=== PATIENT | female | born 1995 | race Caucasian/White ===

== ENCOUNTER 2019-06-27 22:45 | Emergency (ER) | payer MEDICARE, MEDICAID, SELFPAY ==
[2019-06-27 23:25] VITALS: PULSE 67; RESP 18; TEMP 36.5; O2SAT 100; BMI 22.6
--- NOTE | 2019-06-28 06:20 | ED.PREGNANCY ---
HPI - General Chief complaint: OB/Uterine Contractions Stated complaint: THINKS Time Seen by Provider: 06/27/19 22:51 Source: patient Mode of arrival: ambulatory Limitations: no limitations History of Present Illness HPI Narrative: 23-year-old female smoker presents for with a concern that she may be as evidenced by and inability to remember her last period, some nausea and 4 positive tests at home. She states that she had to confirm her in the emergency department because she needs to improve her to a local government office in order to access the benefits as well as get a private room at her apartment complex. She denies any fever chills. She denies any pain. She denies bleeding, discharge or leakage of fluid MD Complaint: other Associated symptoms: denies other symptoms Vaginal discharge: none Vaginal bleeding: none Patient : Yes OB History - Current : no complications care: none Related Data Home Medications Medication Instructions Recorded Confirmed docusate sodium 100 mg PO BID #0 05/25/12 trazodone 50 mg PO HS #0 05/25/12 methylphenidate HCl [Ritalin LA] #0 06/06/12 Allergies Allergy/AdvReac Type Severity Reaction Status Date / Time No Known Drug Allergies Allergy Verified 06/27/19 23:25 Review of Systems Constitutional Denies chills, Denies fever(s), Denies lethargy and Denies weakness Eyes Denies change in vision, Denies eye discharge, Denies irritation and Denies loss of vision ENT Ears, Nose, Mouth, and Throat: Denies change in voice, Denies neck pain and Denies sore throat Cardiovascular Denies chest pain, Denies irregular heart rhythm, Denies lightheadedness, Denies palpitations, Denies dyspnea, Denies dyspnea on exertion and Denies orthopnea Respiratory Denies cough, Denies dyspnea, Denies dyspnea on exertion and Denies wheezing Gastrointestinal Gastrointestinal: Denies abdominal pain, Denies change in bowel habits, Denies diarrhea, Denies nausea and Denies vomiting Genitourinary Denies hematuria, Denies flank pain, Denies urinary incontinence and Denies urinary urgency Musculoskeletal Denies neck pain Integumentary/Breasts Denies pruritus, Denies erythema, Denies rash and Denies wounds Neurologic Denies confusion, Denies loss of vision and Denies weakness Psychiatric Denies anxiety, Denies confusion, Denies depression, Denies homicidal ideation and Denies suicidal ideation Endocrine Denies palpitations Hematologic/Lymphatic Denies easy bruising Allergic/Immunologic Denies wheezing PMFSH - Past Medical History Patient : Yes Exam Narrative Exam Narrative: GEN: AOx3 and in mild distress EYES: Pupils are equal, round, and reactive to light and accommodation. Extraoccular muscles are intact bilaterally. There is no subconjunctival hemorrhage or exudate. CHEST: Lungs are clear to auscultation bilaterally and free of wheezes, rales, or rhonchi. Heart rate is regular rhythm, there are no murmurs, clicks, rubs, or gallops. There is no chest wall tenderness. ABD: Abdomen is soft and nontender. There is no guarding or rebound. Bowel sounds are normal in all 4 quadrants. There is no mass or organomegaly. EXT: Full painless ROM of all extremities with no loss of sensation or strength. SKIN: Warm, pink, and dry. No erythema or rash Initial Vital Signs Initial Vital Signs: Vital Signs Temperature 97.7 F 06/27/19 23:25 Pulse Rate 67 06/27/19 23:25 Respiratory Rate 18 06/27/19 23:25 Pulse Oximetry 100 06/27/19 23:25 Course Vital Signs - 8 hr 06/27/19 23:25 Temperature 97.7 F Pulse Rate 67 Respiratory Rate 18 Pulse Oximetry 100 MDM - OB/Uterine Contractions Lab Data Point of Care Testing Test Results Positive Discharge Plan Departure Patient Disposition: Home Clinical Impression: Qualifiers: Weeks of gestation: unspecified Qualified Code(s): Z34.90 - Encounter for supervision of normal , unspecified, unspecified trimester Discharge Date/Time: 06/28/19 01:25 Interventions: ED Discharge Assessment Last Done: 06/28/19 01:25 Instructions: DI for -- Discomforts and Remedies Activity Restrictions/Additional Instructions: *You have been diagnosed with [newly discovered ] *What to do: *Take medications as directed *Follow up with your primary care provider in 2-3 days, call for an appointment. Let them know you were seen in the Emergency Department and that we ask that you be seen in follow up *Return to ER if you should have any new, worsening or concerning symptoms Prescriptions: No Action trazodone 50 MG tablet 50 mg PO HS Qty: 0 RF: 0 docusate sodium 100 MG capsule 100 mg PO BID Qty: 0 RF: 0 methylphenidate HCl [Ritalin LA] 10 MG capsule,ER biphasic 50-50 Qty: 0 RF: 0 Referrals: Danielle Melchor MD [Physician] -
== END 2019-06-28 01:25 | disposition home or self-care (01) ==
PROVIDERS: Emergency Provider Emergency Medicine
DX: N91.2 Amenorrhea, unspecified (principal); Z33.1 Pregnant state, incidental
CPT/HCPCS: 81025; 99282